=== PATIENT | female | born 1965 | race Hispanic/Latino ===

== ENCOUNTER → 2023-12-31 | Day surgery (SDC) | payer OTHER ==
[~2023-12-31] MED LIST: CELEBREX200 MG PO; DEXAMETHASONE SOD PHOS INJ 4 MG/ML SDV ONE; FENTANYL CITRATE/PF 100MCG/2 ML INJ ONE; KETOROLAC TROMETHAMINE 30 MG/ML VIAL ONE; LIDOCAINE HCL 2% LOCAL INJ 5 ML SDV VIAL INJ ONE; ONDANSETRON HCL INJ 2MG/ML 2ML 2 MG/ML VIAL ONE; PHENYLEPHRINE HCL 1% 10 MG/ML VIAL ONE; PROPOFOL IV EMULSION 10 MG/ML 20 ML VIAL ONE; SEVOFLURANE INHAL SOLN 250 ML PEN BTL ONE; SODIUM CHLORIDE 0.9% 500ML 0 ML ONE
[2023-12-31] MEDS: LACTATED RINGER'S 1,000 ML ONE (06:04)
[2023-12-31 07:56] VITALS: TEMP 98.3
[2023-12-31] MEDS: FENTANYL CITRATE/PF 100MCG/2 ML INJ ONE (08:13)
[2023-12-31] MEDS: ACETAMINOPHEN/CODEINE 300MG - 30MG TAB ONE (08:25)
[2023-12-31 08:55] VITALS: BP 139/82; PULSE 67; RESP 20; O2SAT 97
== END | disposition home or self-care (01) ==
LOC: OR 05:30
PROVIDERS: ATTEND Specialist
DX: G56.01 Carpal tunnel syndrome, right upper limb (principal); M19.90 Unspecified osteoarthritis, unspecified site; E66.01 Morbid (severe) obesity due to excess calories; K21.9 Gastro-esophageal reflux disease without esophagitis; Z71.82 Exercise counseling; Z71.3 Dietary counseling and surveillance; Z01.810 Encounter for preprocedural cardiovascular examination; Z79.899 Other long term (current) drug therapy; Z68.35 Body mass index [BMI] 35.0-35.9, adult
CPT/HCPCS: 29848; 93005; J0690; J1100; J1885; J2001; J2371; J2405; J2704; J3010; J7121; J7040